=== PATIENT | female | born 1985 | race American Indian/Alaskan Native ===

== ENCOUNTER 2016-10-02 20:20 | Inpatient (IN) | payer OTHER, MEDICAID ==
[2016-10-02] MEDS ORDERED: LACTATED RINGERS 1,000 ML ONE (22:57)
[2016-10-03] MEDS ORDERED: CERVIDIL VG ONE (00:39)
[2016-10-03] MEDS ORDERED: BRETHINE SUB-Q PRN (00:40)
[2016-10-03] MEDS ORDERED: ZOFRAN IV PRN ×2 (00:40→16:17)
[2016-10-03] MEDS ORDERED: XYLOCAINE 2% INFILTRATI ONE ×2 (00:40→13:07)
[2016-10-03] MEDS ORDERED: SUBLIMAZE IV PRN (00:40)
[2016-10-03] MEDS ORDERED: BRETHINE IVP PRN (00:40)
[2016-10-03] MEDS ORDERED: STADOL IV PRN (00:40)
[2016-10-03] MEDS ORDERED: NARCAN 0.4 MG/1 ML IV PRN (00:40)
[2016-10-03] MEDS ORDERED: ePHEDrine SULFATE IV PRN ×2 (00:40→09:08)
[2016-10-03] MEDS ORDERED: MINERAL OIL PO PRN (00:40)
[2016-10-03] MEDS ORDERED: PITOCin/NS 20 UNIT/1000ML DRIP 1,000 ML IV SCH (01:00)
[2016-10-03 05:14] LABS: Hematocrit 32.6 % (30.3-42.9); Hemoglobin 10.3 gm/dl (10.1-14.3); Mean Corpuscular HGB Conc 32 % (30-34); Mean Corpuscular Volume 73 fl (79-97); Platelet Count 198 K/mm3 (140-440); Red Blood Count 4.48 M/mm3 (3.65-5.03); Red Cell Distribution Width 15.3 % (13.2-15.2); White Blood Count 8.1 K/mm3 (4.5-11.0)
[2016-10-03 05:17] LABS: Mean Corpuscular Hemoglobin 23 pg (28-32)
[2016-10-03] MEDS ORDERED: PITOCin/NS 30 UNIT/500ML 500 ML IV SCH (07:00)
[2016-10-03] MEDS: LACTATED RINGERS 1,000 ML IV SCH ×2 (07:41→09:39)
--- NOTE | 2016-10-03 09:01 | History and Physical Report ---
History of Present Illness Date of examination: 10/03/16 Date of admission: 10/02/16 20:20 Chief complaint: HD#1 IOL for cHTN and GDM History of present illness: This is a 31 yo seen in [facility] starting care at 10 weeks. Her problems include Labetolol 200 mg bid, obesity and gestational Diabetes on glyburide 2.5mg. She has mild anemia on iron tabs. She came in today by recommendations of IOl for cHTN and GDM at 39 weeks. labs include )+ ant neg, h/h 12.5/35.7 Rubella non immune RPR NR hep neg, HIV neg, Plt 242 HSV2 + AA G/C neg 24hr urine 540 quad negDM 186 abn 3hr fasting 148, 2hr 170 3hr 141 GBS neg. Past History Past Medical History: hypertension, other (chlamydia ) Past Surgical History: no surgical history PE[employer]UT SHE[employer]ER History: chlamydia Family/Genetic History: hypertension Social history: no significant social history - Obstetrical History Expected Date of Delivery: 10/07/16 Actual Gestation: 39 Week(s) 3 Day(s) : 2 Para: 1 Number of Pregnancies: 0 Spontaneous Abortions: 0 Induced : 0 Number of Living Children: 1 Medications and Allergies Allergies Allergy/AdvReac Type Severity Reaction Status Date / Time No Known Allergies Allergy Unverified 06/13/16 18:00 Home Medications Medication Instructions Recorded Confirmed Last Taken Type glyBURIDE [Glyburide] 10/03/16 Unknown History Active Meds: Active Medications Butorphanol Tartrate (Stadol) 2 mg IV Q2H PRN PRN Reason: Pain , Severe (7-10) Fentanyl (Sublimaze) 100 mcg IV Q2H PRN PRN Reason: Labor Pain Lactated Ringer's (Lactated Ringers) 1,000 mls @ 125 mls/hr IV DIRECT ROCAEL Last Admin: 10/03/16 07:41 Dose: 125 mls/hr Oxytocin/Sodium Chloride (Pitocin/Ns 20 Unit/1000ml Drip) 1,000 mls @ 125 mls/ hr IV DIRECT ROCAEL Oxytocin/Sodium Chloride (Pitocin/Ns 30 Unit/500ml) 500 mls @ 1 mls/hr IV TITR ROCAEL; 1 MILLIUNITS/MIN PRN Reason: Protocol Oxytocin/Sodium Chloride (Pitocin/Ns 30 Unit/500ml) 500 mls @ 4 mls/hr IV TITR ROCAEL PRN Reason: Protocol Mineral Oil (Mineral Oil) 30 ml PO QHS PRN PRN Reason: Constipation Naloxone HCl (Narcan 0.4 Mg/1 Ml) 0.1 mg IV Q2MIN PRN PRN Reason: Res Rate </= 8 or 02 SAT < 92% Ondansetron HCl (Zofran) 4 mg IV Q8H PRN PRN Reason: Nausea And Vomiting Review of Systems All systems: negative Constitutional: weight gain Eyes: deferred Ears, nose, mouth and throat: deferred Genitourinary: deferred Integumentary: deferred Neurological: no headaches - Vital Signs Vital signs: Vital Signs Pulse BP 102 H 137/81 10/02/16 22:36 10/02/16 22:36 Temp Pulse Resp BP Pulse Ox 98.5 F 98 H 16 139/80 94 10/03/16 07:28 10/03/16 08:02 10/03/16 07:28 10/03/16 08:02 10/03/16 08:02 - Physical Exam Breasts: Positive: normal Cardiovascular: Regular rate, Normal S1, Normal S2, No murmurs Abdomen: Positive: normal appearance, soft, normal bowel sounds. Negative: distention, tenderness Genitourinary (Female): Positive: normal external genitalia, normal perenium Vulva: both: normal Vagina: Positive: normal moisture Uterus: Positive: normal size, normal contour Adnexa: both: normal Anus/Rectum: Positive: normal perianal skin, heme negative Extremities: Positive: normal Deep Tendon Reflex Grade: Normal +2 - Obstetrical FHR: auscultation normal, category 1 Uterine Contraction Monitor Mode: External Cervical Dilatation: 4 Cervical Effacement Percentage: 90 station: -1 Uterine Contraction Pattern: Irregular Uterine Tone Measurement Phase: Resting Uterine Contraction Intensity: Mild (Patient came in last evening cervdil placed at 1 am rechecked this am noted to be -1 [facility] preparing for epidural and pitocin for continued IOL) Results Result Diagrams: 10/02/16 23:10 Abnormal lab results 10/02/16 Range/Units 23:10 MCV 73 L (79-97) fl MCH 23 L (28-32) pg RDW 15.3 H (13.2-15.2) % All other labs normal. Assessment and Plan HD#1 for IOL for cHTN on labetolol and GDM fingersticks per protocol cervidil removed [facility] pitocin 2x2 expect vaginal delivery
--- NOTE | 2016-10-03 09:08 | Anesthesia Consultation ---
Anesthesia Consult and Med Hx Date of service: 10/03/16 - Airway Anesthetic Teeth Evaluation: Good ROM Head & Neck: Adequate Mental/Hyoid Distance: Adequate Mallampati Class: Class II Intubation Access Assessment: Probably Good - Pre-Operative Health Status ASA Pre-Surgery Classification: ASA2 Proposed Anesthetic Plan: Epidural, Spinal - Pulmonary Hx Asthma: No COPD: No Hx Pneumonia: No - Cardiovascular System Hx Hypertension: Yes (chronic HTN, on meds) - Central Nervous System Hx Seizures: No Hx Psychiatric Problems: No - Endocrine Hx Renal Disease: No Hx End Stage Renal Disease: No Hx Hypothyroidism: No Hx Hyperthyroidism: No - Hematic Hx Anemia: No Hx Sickle Cell Disease: No - Other Systems Hx Alcohol Use: No Hx Obesity: Yes (BMI 35.4)
[2016-10-03] MEDS: PITOCin/NS 30 UNIT/500ML 500 ML IV SCH ×4 (09:19→13:43)
[2016-10-03] MEDS ORDERED: NORMODYNE PO SCH (10:00)
[2016-10-03] MEDS ORDERED: fentaNYL-BUPIV 2 MCG/ML-0.125% 100 ML EPIDURAL SCH (10:00)
[2016-10-03] MEDS ORDERED: XYLOCAINE MPF 2% ONE (10:57)
[2016-10-03] MEDS ORDERED: NORMODYNE IV PRN (11:30)
[2016-10-03] MEDS ORDERED: MAGNESIUM SULFATE 40GM/1000ML 1,000 ML IV SCH ×2 (11:30→17:00)
[2016-10-03] MEDS ORDERED: MAGNESIUM SULFATE 4GM/100ML 100 ML IV ONE (11:30)
[2016-10-03 12:21] LABS: Bilirubin,Urine NEG (Negative); Blood,Urine SM (Negative); Ketones,Urine NEG (Negative); Leukocyte Esterase,Urine NEG (Negative); Nitrite,Urine NEG (Negative); RBC,Urine < 1.0 /HPF (0.0-6.0); Urobilinogen,Urine < 2.0 mg/dL (<2.0); WBC,Urine < 1.0 /HPF (0.0-6.0)
[2016-10-03 12:45] LABS: Alanine Aminotransferase 9 units/L (7-56); Lactate Dehydrogenase 160 units/L (91-180); Uric Acid 6.9 mg/dL (3.5-7.6)
--- NOTE | 2016-10-03 13:42 | Event Note ---
Date: 10/03/16 S: Epidural rebolused, dense O: BP130/80 Magnesium Sulfate Infusing FHT: Early decels, category 2 secondary to minimal variability UC: 2, Pitocin at 6mu SVE: rim/c/-2/vtx A: IUP at 39 weeks Second stage labor CHTN A1 diabetic P: Passive descent.
[2016-10-03] MEDS ORDERED: CYTOTEC ONE (15:44)
--- NOTE | 2016-10-03 16:10 | Procedure Note ---
OB Delivery Note - Delivery Date of Delivery: 10/03/16 (7.4oz @ 1537 female) Surgeon: MANN QUINTERO Estimated blood loss: 500cc - Vaginal Delivery presentation: vertex Delivery position: OA Intrapartum events: preeclampsia, uterine atony Delivery induction: cervidil Delivery augmentation: rupture of membranes, pitocin Delivery monitor: external FHT, external uterine Route of delivery: Delivery placenta: spontaneous Delivery cord: nuchal cord (Loose x 1, reduced), 3 umbilical vessels Episiotomy: none Delivery repair: other Anesthesia: none - B at 1 minute: 8 at 5 minutes: 9 Gender: Female A at 1 minute: 7 at 5 minutes: 8 Infant Gender: Female (Pushed for viable female over intact perineum and uder epidural anethesia. Infant floppy, Respiratory at BS, taken directly to warmer. Spont. placenta. Pitocin infusing, bleeding heavy, no clots on inspection, bimanual message, bleeding controlled. Cytotec 800mcg per rectum. Bleeding scant. Vaginal skid sanjay, not bleeding, not repaired. EBL 500cc)
[2016-10-03] MEDS ORDERED: PHENERGAN PR PRN (16:17)
[2016-10-03] MEDS ORDERED: DERMOPLAST TP PRN (16:17)
[2016-10-03] MEDS ORDERED: PHENERGAN PO PRN (16:17)
[2016-10-03] MEDS ORDERED: DULCOLAX PR PRN (16:17)
[2016-10-03] MEDS ORDERED: BENADRYL PO PRN (16:17)
[2016-10-03] MEDS ORDERED: TUCKS PAD TP PRN (16:17)
[2016-10-03] MEDS ORDERED: NORCO 5/325 PO PRN (16:17)
[2016-10-03] MEDS ORDERED: CYTOTEC PR ONE (16:17)
[2016-10-03] MEDS ORDERED: LANSINOH TP PRN (16:17)
[2016-10-03] MEDS ORDERED: MILK OF MAGNESIA PO PRN (16:17)
[2016-10-03] MEDS ORDERED: TYLENOL PO PRN (16:17)
[2016-10-03] MEDS ORDERED: SODIUM CHLORIDE FLUSH SYRINGE 10 ML IV NR (17:00)
[2016-10-03] MEDS: MOTRIN PO SCH (19:37)
[2016-10-03] MEDS: NORMODYNE PO SCH (21:59)
[2016-10-03] MEDS: FEOSOL PO SCH (22:00)
[2016-10-03] MEDS: COLACE PO SCH (22:00)
[2016-10-04] MEDS ORDERED: PITOCin/NS 20 UNIT/1000ML DRIP 1,000 ML IV SCH (04:00)
[2016-10-04] MEDS: MOTRIN PO SCH ×4 (04:06→23:55)
[2016-10-04 05:59] LABS: Hematocrit 27.1 % (30.3-42.9); Hemoglobin 8.6 gm/dl (10.1-14.3); Mean Corpuscular HGB Conc 32 % (30-34); Mean Corpuscular Hemoglobin 23 pg (28-32); Mean Corpuscular Volume 73 fl (79-97); Platelet Count 188 K/mm3 (140-440); Red Blood Count 3.73 M/mm3 (3.65-5.03); Red Cell Distribution Width 14.9 % (13.2-15.2); White Blood Count 20.1 K/mm3 (4.5-11.0)
[2016-10-04 06:18] LABS: Uric Acid 8.1 mg/dL (3.5-7.6)
--- NOTE | 2016-10-04 08:53 | Progress Note ---
Assessment and Plan O: BP: 130-140/70-80 PP H/H: 8.6/7.1 Magnesium Sulfate continues at 2gr/hr Garay: 1000cc over 12 hours A: Stable PP Day 1 CHTN with superimposed preeclampsia A2 diabetic P: Iron BID Continue Magnesium for 24hr then D/C with Garay Subjective - Subjective Date of service: 10/04/16 Patient reports: appetite normal, pain well controlled, ambulating normally, other (Denies MUNOZ, blurred vision or epigastric pain. Minimal ambulation, secondary to Garay), no dizzy ambulation : doing well, nursing well Objective - Vital Signs Latest vital signs: Vital Signs Temp Pulse Pulse Resp BP BP Pulse Ox 10/04/16 06:30 98.1 F 80 18 133/70 10/04/16 04:00 98.5 F 88 18 140/77 10/04/16 02:00 98.4 F 88 18 138/82 10/04/16 00:36 98.7 F 96 H 16 132/76 10/03/16 22:35 98.6 F 102 H 18 156/75 10/03/16 21:59 100 H 159/89 10/03/16 20:55 99.6 F 109 H 18 152/81 10/03/16 18:25 98.3 F 100 H 20 147/80 10/03/16 17:51 100 H 169/107 10/03/16 17:50 99 H 98 10/03/16 17:45 97 H 97 10/03/16 17:40 98 H 97 10/03/16 17:36 96 H 162/105 10/03/16 17:35 99 H 97 10/03/16 17:30 98 H 97 10/03/16 17:25 102 H 97 10/03/16 17:21 100 H 159/104 10/03/16 17:20 99 H 99 10/03/16 17:15 99 H 98 10/03/16 17:10 103 H 97 10/03/16 17:06 99 H 152/99 10/03/16 17:05 101 H 97 10/03/16 17:00 106 H 99 10/03/16 16:55 96 H 97 10/03/16 16:51 93 H 149/92 10/03/16 16:50 95 H 97 10/03/16 16:45 95 H 97 10/03/16 16:40 95 H 97 10/03/16 16:37 94 H 153/94 10/03/16 16:36 96 H 158/99 10/03/16 16:35 97 H 98 10/03/16 16:30 97 H 97 10/03/16 16:25 99 H 98 10/03/16 16:21 105 H 150/98 10/03/16 16:20 102 H 97 10/03/16 16:15 103 H 97 10/03/16 16:10 109 H 98 10/03/16 16:05 100 H 96 10/03/16 15:20 100 H 96 10/03/16 15:18 102 H 94 10/03/16 15:15 106 H 97 10/03/16 15:10 116 H 99 10/03/16 15:09 102 H 93 10/03/16 15:05 100 H 93 10/03/16 15:04 101 H 93 10/03/16 15:00 107 H 97 10/03/16 14:57 95 H 94 10/03/16 14:55 105 H 97 10/03/16 14:52 99 H 94 10/03/16 14:50 100 H 94 10/03/16 14:46 96 H 94 10/03/16 14:45 106 H 94 10/03/16 14:40 98 H 94 10/03/16 14:35 104 H 97 10/03/16 14:34 101 H 94 10/03/16 14:30 97 H 94 10/03/16 14:28 97 H 94 10/03/16 14:25 101 H 98 10/03/16 14:22 107 H 94 10/03/16 14:20 98 H 95 10/03/16 14:15 103 H 97 10/03/16 14:10 98 H 95 10/03/16 14:05 97 H 96 10/03/16 14:00 101 H 96 10/03/16 13:59 95 H 93 10/03/16 13:55 97 H 96 10/03/16 13:50 96 H 97 10/03/16 13:45 100 H 96 10/03/16 13:44 94 H 147/86 10/03/16 13:40 103 H 98 10/03/16 13:38 113 H 130/84 99 10/03/16 13:33 107 H 134/83 98 10/03/16 13:28 100 H 143/86 96 10/03/16 13:23 108 H 99 10/03/16 13:22 100 H 138/82 10/03/16 13:19 95 H 127/63 10/03/16 13:18 99 H 93 10/03/16 13:13 101 H 100 10/03/16 13:12 104 H 139/81 93 10/03/16 13:08 102 H 142/89 96 10/03/16 13:05 102 H 94 10/03/16 13:03 102 H 100 10/03/16 13:02 99 H 148/80 10/03/16 12:58 95 H 95 10/03/16 12:57 98 H 143/73 94 10/03/16 12:53 101 H 125/71 96 10/03/16 12:50 98 H 94 10/03/16 12:48 101 H 146/93 99 10/03/16 12:43 100 H 96 10/03/16 12:42 101 H 169/108 92 10/03/16 12:38 97 H 95 10/03/16 12:37 96 H 152/99 10/03/16 12:35 102 H 92 10/03/16 12:33 104 H 169/107 98 10/03/16 12:28 96 H 164/95 96 10/03/16 12:23 95 H 156/94 91 10/03/16 12:18 97 H 97 10/03/16 12:17 96 H 147/90 10/03/16 12:13 99 H 99 10/03/16 12:12 98 H 134/81 93 10/03/16 12:08 101 H 97 10/03/16 12:07 99 H 145/87 10/03/16 12:03 98 H 140/89 97 10/03/16 11:58 99 H 98 10/03/16 11:57 96 H 152/95 10/03/16 11:52 100 H 142/88 10/03/16 11:50 100 H 97 10/03/16 11:47 93 H 152/94 10/03/16 11:45 97 H 97 10/03/16 11:42 93 H 149/91 10/03/16 11:40 95 H 97 10/03/16 11:37 95 H 143/91 10/03/16 11:35 96 H 97 10/03/16 11:33 94 H 151/93 10/03/16 11:30 97 H 97 10/03/16 11:29 94 H 138/91 10/03/16 11:25 95 H 97 10/03/16 11:22 93 H 137/89 10/03/16 11:20 95 H 97 10/03/16 11:17 96 H 142/92 10/03/16 11:15 95 H 95 10/03/16 11:13 100 H 165/101 10/03/16 11:10 103 H 98 10/03/16 11:09 97 H 152/93 10/03/16 11:07 97 H 152/93 10/03/16 11:05 100 H 93 10/03/16 11:02 103 H 178/110 10/03/16 11:00 107 H 95 10/03/16 10:59 106 H 93 10/03/16 10:57 108 H 187/118 10/03/16 10:55 102 H 95 10/03/16 10:53 108 H 191/120 93 10/03/16 10:50 115 H 96 10/03/16 10:47 100 H 176/113 10/03/16 10:45 104 H 98 10/03/16 10:43 18 164/111 10/03/16 10:42 104 H 164/111 10/03/16 10:40 108 H 164/111 96 10/03/16 10:39 108 H 187/116 10/03/16 10:35 109 H 97 10/03/16 10:32 103 H 170/100 10/03/16 10:30 105 H 99 10/03/16 10:27 97 H 168/93 10/03/16 10:25 98 H 98 10/03/16 10:23 103 H 189/88 10/03/16 10:20 104 H 98 10/03/16 10:17 98 H 151/93 10/03/16 10:15 98 H 96 10/03/16 10:12 99 H 153/95 10/03/16 10:10 100 H 96 10/03/16 10:07 97 H 165/98 10/03/16 10:05 103 H 98 10/03/16 10:03 99 H 158/93 10/03/16 10:00 101 H 98 10/03/16 09:57 98 H 159/98 10/03/16 09:55 103 H 98 10/03/16 09:54 101 H 155/97 94 10/03/16 09:50 103 H 97 10/03/16 09:47 104 H 173/102 10/03/16 09:45 107 H 96 10/03/16 09:42 105 H 161/100 10/03/16 09:40 102 H 98 10/03/16 09:37 106 H 174/95 10/03/16 09:35 107 H 99 10/03/16 09:30 108 H 99 10/03/16 09:25 105 H 98 10/03/16 09:20 101 H 168/91 99 Intake and Output 10/03/16 10/04/16 10/04/16 22:59 06:59 14:59 Intake Total 865 1240 240 Output Total 850 1000 1000 Balance 15 240 -760 Intake: IV 625 1000 PITOCin/NS 20 UNIT/1000ML 300 600 DRIP 1,000 ML @ 125 mls/ hr IV DIRECT ROCAEL Rx#: [id number] Magnesium Sulfate 40Gm/ 200 400 1000ML 1,000 ml @ 2 GM/HR 50 mls/hr IV DIRECT ROCAEL Rx#:[id number] Left Wrist 125 Intake, Free Water 240 240 240 Output: Urine 850 1000 1000 Indwelling Catheter 850 1000 1000 Other: Total, Output Amount 850 1000 1000 Estimated Blood Loss 500 - Exam Lungs: Present: Normal air movement Abdomen: Present: normal appearance, soft. Absent: distention, tenderness Vulva: both: normal Uterus: Present: normal, firm, fundal height below umbilicus. Absent: bogginess , tenderness Extremities: Present: normal. Absent: edema Deep Tendon Reflex Grade: Dull/Diminished +1 - Labs Labs: Abnormal lab results 10/04/16 10/04/16 Range/Units 05:37 05:37 WBC 20.1 H (4.5-11.0) K/mm3 Hgb 8.6 L (10.1-14.3) gm/dl Hct 27.1 L (30.3-42.9) % MCV 73 L (79-97) fl MCH 23 L (28-32) pg Uric Acid 8.1 H (3.5-7.6) mg/dL Lactate Dehydrogenase 236 H (91-180) units/L
[2016-10-04] MEDS: COLACE PO SCH ×2 (10:21→21:51)
[2016-10-04] MEDS: NORMODYNE PO SCH ×2 (10:22→21:51)
[2016-10-04] MEDS: FEOSOL PO SCH ×2 (10:22→21:51)
--- NOTE | 2016-10-04 11:03 | Progress Note ---
Subjective Date of service: 10/04/16 Interval history: 1st day after normal vaginal delivery Patient is in the bed, comfortable. pain is well controlled with pain meds. Ambulated well. No residual neurological deficit. No anesthesia complications Objective - Constitutional Vitals: Vital Signs - 12hr 10/04/16 10/04/16 10/04/16 00:36 02:00 04:00 Temperature 98.7 F 98.4 F 98.5 F Pulse Rate Pulse Rate [ 96 H 88 88 Right From Monitor] Pulse Rate [ Right Radial] Respiratory 16 18 18 Rate Blood Pressure Blood Pressure 132/76 138/82 140/77 [Left Arm] Blood Pressure [Right Arm] 10/04/16 10/04/16 10/04/16 06:30 07:54 10:00 Temperature 98.1 F 97.7 F Pulse Rate Pulse Rate [ 80 86 Right From Monitor] Pulse Rate [ 84 Right Radial] Respiratory 18 20 20 Rate Blood Pressure Blood Pressure 133/70 [Left Arm] Blood Pressure 132/70 135/75 [Right Arm] 10/04/16 10:22 Temperature Pulse Rate 86 Pulse Rate [ Right From Monitor] Pulse Rate [ Right Radial] Respiratory Rate Blood Pressure 140/79 Blood Pressure [Left Arm] Blood Pressure [Right Arm] - Labs CBC & Chem 7: 10/04/16 05:37 10/03/16 11:57 Labs: Abnormal lab results 10/04/16 10/04/16 Range/Units 05:37 05:37 WBC 20.1 H (4.5-11.0) K/mm3 Hgb 8.6 L (10.1-14.3) gm/dl Hct 27.1 L (30.3-42.9) % MCV 73 L (79-97) fl MCH 23 L (28-32) pg Uric Acid 8.1 H (3.5-7.6) mg/dL Lactate Dehydrogenase 236 H (91-180) units/L
[2016-10-04] MEDS ORDERED: BOOSTRIX IM ONE (16:17)
[2016-10-04] MEDS ORDERED: M-M-R II VACCINE SUB-Q ONE (16:17)
[2016-10-05] MEDS: MOTRIN PO SCH ×2 (04:58→11:13)
[2016-10-05] MEDS ORDERED: BOOSTRIX IM ONE (06:05)
--- NOTE | 2016-10-05 09:10 | Progress Note ---
Assessment and Plan - Patient Problems (1) Hypertension affecting Current Visit: Yes Status: Acute Plan to address problem: Patient doing well Discharge home Subjective - Subjective Date of service: 10/05/16 Interval history: Patient doing well. No significant complaints. Patient reports: appetite normal, voiding normally, pain well controlled [place]: doing well Objective - Vital Signs Latest vital signs: Vital Signs Temp Pulse Pulse Pulse Resp BP BP 10/05/16 05:00 80 144/81 10/05/16 00:15 97.8 F 80 16 129/67 10/04/16 21:51 84 136/70 10/04/16 16:05 97.8 F 29 L 76 20 126/72 10/04/16 14:20 76 20 122/73 10/04/16 11:58 97.9 F 82 18 128/81 10/04/16 10:22 86 140/79 10/04/16 10:00 86 20 135/75 Intake and Output 10/04/16 10/05/16 10/05/16 22:59 06:59 14:59 Intake Total 690 360 Output Total 950 100 Balance -260 260 Intake: IV 250 PITOCin/NS 20 UNIT/1000ML 150 DRIP 1,000 ML @ 125 mls/ hr IV DIRECT ROCAEL Rx#: [id number] Magnesium Sulfate 40Gm/ 100 1000ML 1,000 ml @ 2 GM/HR 50 mls/hr IV DIRECT ROCAEL Rx#:[id number] Oral 320 Intake, Free Water 120 360 Output: Urine 950 100 Void 100 100 Indwelling Catheter 850 Other: Total, Intake Amount 120 Total, Output Amount 100 100 # Voids Void 1 1 - Exam Abdomen: Present: normal appearance, soft Uterus: Present: normal, firm
--- NOTE | 2016-10-05 09:11 | Discharge Summary ---
Providers - Providers Date of Admission: 10/02/16 20:20 Date of discharge: 10/05/16 Attending physician: JULI NGUYEN Primary care physician: JULI NGUYEN Hospitalization Reason for admission: induction of labor Delivery: Discharge diagnosis: IUP at term delivered [place] baby: female Hospital course: The patient was admitted for induction of labor secondary to chronic hypertension. Patient is successful vaginal delivery. course was uneventful. Condition at discharge: Good Disposition: DISCHARGED TO HOME OR SELFCARE - Discharge Diagnoses (1) Hypertension affecting Status: Acute Plan - Discharge Medications Prescriptions: HYDROcodone/APAP 5-325 [[place] 5/325] 1 each PO Q6HR PRN #30 tablet PRN Reason: Pain Ibuprofen [Motrin] 800 mg PO Q8HR PRN #60 tablet PRN Reason: Pain Labetalol [Normodyne TAB] 200 mg PO BID #60 tablet - Provider Discharge Summary Activity: no sex for 6 weeks, no heavy lifting 4 weeks, no strenuous exercise Diet: routine Instructions: routine Additional instructions: [] Smoking cessation referral if applicable(refer to patient education folder for contact #) [] Refer to [facility] Booklet Call your doctor immediately for: * Fever > 100.5 * Heavy vaginal bleeding ( >1 pad per hour) * Severe persistent headache * Shortness of breath * Reddened, hot, painful area to leg or breast * Drainage or odor from incision. * Keep incision clean and dry at all times and follow doctor's instructions regarding bathing/showering Follow-up in 2 weeks for a blood pressure check
[2016-10-05 10:57] VITALS: BP 141/82
[2016-10-05] MEDS: FEOSOL PO SCH (10:57)
[2016-10-05] MEDS: NORMODYNE PO SCH (10:57)
[2016-10-05] MEDS: COLACE PO SCH (10:57)
== END 2016-10-05 13:20 | disposition home or self-care (01) | DRG 775 ==
LOC: LD 20:20 → OB 10-03 19:22
PROVIDERS: ADMIT Obstetrics & Gynecology; ATTEND Obstetrics & Gynecology
PROC: 10E0XZZ Delivery of Products of Conception, External Approach (ICD-10-PCS; principal; 2016-10-03)
DX: O11.4 Pre-existing hypertension with pre-eclampsia, complicating childbirth (principal); O24.429 Gestational diabetes mellitus in childbirth, unspecified control; O99.214 Obesity complicating childbirth; E66.9 Obesity, unspecified; D64.9 Anemia, unspecified; Z68.35 Body mass index [BMI] 35.0-35.9, adult; O99.02 Anemia complicating childbirth; Z3A.39 39 weeks gestation of pregnancy; Z37.0 Single live birth
CPT/HCPCS: 36415; 81001; 82565; 82962; 83615; 84450; 84460; 84550; 85027; 86850; 86900; 86901; 90471; 90715; J2590; J3475; J7120